=== PATIENT | female | born 1970 | race Caucasian/White ===

== ENCOUNTER 2022-04-25 11:21 | Emergency (ER) | payer OTHER ==
[~2022-04-25] VITALS: Ht 157.5 cm; Wt 64.4 kg
[~2022-04-25 11:21] MED LIST: PROTONIX20 MG; ZANTAC300 MG
[2022-04-25] MEDS ORDERED: BUSPIRONE HCL7.5 MG PO (11:54)
[2022-04-25] MEDS ORDERED: ESCITALOPRAM OX20 MG PO (11:54)
[2022-04-25] MEDS ORDERED: ATORVASTATIN CA20 MG PO (11:54)
[2022-04-25] MEDS ORDERED: PROMETRIUM200 MG PO (11:55)
[2022-04-25] MEDS ORDERED: KETO10TA2 PO (15:53)
[2022-04-25] MEDS ORDERED: NORFLEX100MG PO (15:53)
== END 2022-04-25 16:09 | disposition home or self-care (01) ==
LOC: ER 11:21
DX: S89.92XA Unspecified injury of left lower leg, initial encounter (principal); W18.31XA Fall on same level due to stepping on an object, initial encounter; Y93.9 Activity, unspecified; Y92.413 State road as the place of occurrence of the external cause; S89.91XA Unspecified injury of right lower leg, initial encounter